=== PATIENT | female | born 1990 | race Caucasian/White ===

== ENCOUNTER 2022-02-17 20:08 | Emergency (ER) | payer OTHER ==
[2022-02-17] MEDS ORDERED: BACTRIM DS TAB1 EAC1 PO (20:56)
[2022-02-17] MEDS ORDERED: NORCO 5-325 TA1 EACH PO (21:00)
[2022-02-17] MEDS ORDERED: CEPHALEXIN500 MG PO (21:00)
== END 2022-02-17 21:08 | disposition home or self-care (01) ==
LOC: FER 20:08
DX: L03.116 Cellulitis of left lower limb (principal)
CPT/HCPCS: 99282